=== PATIENT | male | born 1960 | race Two or more races ===

== ENCOUNTER 2021-04-30 11:19 | Inpatient (IN) | payer OTHER ==
[~2021-04-30] VITALS: Ht 175.3 cm; Wt 88.0 kg
[~2021-04-30 11:19] MED LIST: ALBUPOW26
[2021-04-30] MEDS ORDERED: cefTRIAXone 1GM/50ML D5W 50 ML IV ONE (15:15)
[2021-04-30] MEDS ORDERED: DexAMETHasone SOD PHOS 10MG/1ML VIAL INJ IV ONE (15:15)
[2021-04-30] MEDS ORDERED: AZITHROMYCIN 500MG/ 250ML 250 ML IV ONE (15:15)
[2021-04-30 15:37] LABS: Basophils # (auto) 0 10 ^3/uL (0-0.2); Basophils % (auto) 0.6 % (0.0-2.0); Eosinophils # (auto) 0 10 ^3/uL (0-0.8); Eosinophils % (auto) 0.1 % (0.0-7.0); Hematocrit 44.4 % (41.0-53.0); Hemoglobin 15.6 g/dL (13.5-17.5); Lymphocytes # (auto) 0.6 10 ^3/uL (0.4-5.4); Lymphocytes % (auto) 13.6 % (10.0-50.0); Mean Corpuscular Hemoglobin 31.8 pg (28.0-32.0); Mean Corpuscular Hgb Conc. 35.1 g/dL (32.0-36.0); Mean Corpuscular Volume 90.7 fL (80.0-100.0); Monocytes # (auto) 0.4 10 ^3/uL (0-1.3); Monocytes % (auto) 8.9 % (0.0-12.0); Neutrophils # (auto) 3.6 10 ^3/uL (1.6-8.6); Neutrophils % (auto) 76.8 % (37.0-80.0); Nucleated Red Blood Cells % 0.5 %; Red Blood Cells 4.89 10^6/uL (4.5-5.90); Red Cell Distribution Width 13.1 % (11.8-14.3); White Blood Cell 4.7 10^3/uL (4.4-10.8)
[2021-04-30 15:52] LABS: Albumin 3.1 g/dL (3.4-5.0); Calcium 8.1 mg/dL (8.5-10.1); Potassium 4.2 mmol/L (3.5-5.1)
[2021-04-30 15:57] LABS: BUN/Creatinine Ratio 13.3; Bilirubin, Total 0.5 mg/dL (0.2-1.0); Total Protein 7.2 g/dL (6.4-8.2)
[2021-04-30] MEDS ORDERED: MORPHINE SULFATE INJECTION 2 MG/ML SYRG IV PRN (18:45)
[2021-04-30] MEDS ORDERED: NITROGLYCERIN 0.4 MG SL TAB SL PRN (18:45)
[2021-04-30] MEDS ORDERED: ONDANSETRON HCL 4 MG/2 ML VIAL IV PRN (18:45)
[2021-04-30] MEDS ORDERED: REMDESIVIR PER PHARMACY 0 ML IV SCH (18:45)
[2021-04-30] MEDS ORDERED: IOHEXOL 350 MG/ML 100ML IJ ONE ×2 (18:54→19:00)
[2021-04-30] MEDS ORDERED: REMDESIVIR 200 MG in NS 210ml LOADING DOSE ADULT IV ONE (21:30)
[2021-04-30] MEDS: ENOXAPARIN SOD 40 MG/0.4 ML SYRINGE SC SCH (22:00)
[2021-04-30] MEDS: ASCORBIC ACID 500 MG TAB PO SCH (22:00)
[2021-04-30] MEDS: DOXYCYCLINE 100MG/250ML 250 ML IV SCH (22:00)
[2021-05-01] MEDS: ACETAMINOPHEN 325 MG TAB PO PRN (03:50)
[2021-05-01 08:36] LABS: Potassium 4.3 mmol/L (3.5-5.1)
[2021-05-01 08:44] LABS: Albumin 2.8 g/dL (3.4-5.0); BUN/Creatinine Ratio 16.7; Bilirubin, Total 0.5 mg/dL (0.2-1.0); Calcium 8.4 mg/dL (8.5-10.1); Total Protein 6.9 g/dL (6.4-8.2)
[2021-05-01 09:00] VITALS: BP 106/81
[2021-05-01] MEDS: ENOXAPARIN SOD 40 MG/0.4 ML SYRINGE SC SCH ×2 (10:00→22:30)
[2021-05-01] MEDS: ZINC SULFATE 220mg CAP or TAB PO SCH (10:00)
[2021-05-01] MEDS: DexAMETHasone SOD PHOS 10MG/1ML VIAL INJ IV SCH (10:00)
[2021-05-01] MEDS: DOXYCYCLINE 100MG/250ML 250 ML IV SCH ×2 (10:00→22:29)
[2021-05-01] MEDS: ASCORBIC ACID 500 MG TAB PO SCH ×2 (10:00→22:30)
[2021-05-01] MEDS ORDERED: ENOXAPARIN SOD 40 MG/0.4 ML SYRINGE SC SCH (10:00)
[2021-05-01] MEDS: REMDESIVIR 100mg 100 MG in SODIUM CHL 0.9% 230 ML IV SCH (15:00)
[2021-05-01] MEDS ORDERED: CHOLECALCIFEROL (VITD3) 2,000 UNIT CAP/TAB PO ONE (16:15)
[2021-05-01] MEDS: Ensure HIGH Protein Chocolate 8oz Bottle PO SCH (18:00)
[2021-05-01 20:00] VITALS: BP 122/76
[2021-05-01 22:00] VITALS: BP 122/76
[2021-05-02 04:41] LABS: Urine Bacteria FEW /hpf (None Seen); Urine Blood Negative /uL (Negative); Urine Specific Gravity 1.019 (1.001-1.035); Urine WBC 1 /hpf (0 - 3)
[2021-05-02 05:00] VITALS: BP 125/74
[2021-05-02] MEDS: ALBUTEROL SULF HFA 90MCG INH 200DOSE IN PRN ×2 (05:41→19:44)
[2021-05-02 07:33] LABS: Basophils # (auto) 0 10 ^3/uL (0-0.2); Basophils % (auto) 0.2 % (0.0-2.0); Eosinophils # (auto) 0 10 ^3/uL (0-0.8); Hematocrit 44.3 % (41.0-53.0); Hemoglobin 15.5 g/dL (13.5-17.5); Lymphocytes # (auto) 0.9 10 ^3/uL (0.4-5.4); Lymphocytes % (auto) 10.1 % (10.0-50.0); Mean Corpuscular Hemoglobin 31.9 pg (28.0-32.0); Mean Corpuscular Volume 91.3 fL (80.0-100.0); Monocytes # (auto) 0.8 10 ^3/uL (0-1.3); Monocytes % (auto) 8.9 % (0.0-12.0); Neutrophils % (auto) 80.8 % (37.0-80.0); Nucleated Red Blood Cells % 0.1 %; Red Blood Cells 4.85 10^6/uL (4.5-5.90); Red Cell Distribution Width 13.1 % (11.8-14.3); White Blood Cell 8.7 10^3/uL (4.4-10.8)
[2021-05-02 07:52] LABS: Albumin 2.7 g/dL (3.4-5.0); Calcium 7.7 mg/dL (8.5-10.1); Potassium 4.3 mmol/L (3.5-5.1)
[2021-05-02 07:58] LABS: BUN/Creatinine Ratio 21.9; Bilirubin, Total 0.5 mg/dL (0.2-1.0); Total Protein 6.1 g/dL (6.4-8.2)
[2021-05-02] MEDS: Ensure HIGH Protein Chocolate 8oz Bottle PO SCH ×3 (08:00→18:00)
[2021-05-02 09:00] VITALS: BP 120/77
[2021-05-02] MEDS: DexAMETHasone SOD PHOS 10MG/1ML VIAL INJ IV SCH (10:00)
[2021-05-02] MEDS: ENOXAPARIN SOD 40 MG/0.4 ML SYRINGE SC SCH ×2 (10:00→21:28)
[2021-05-02] MEDS: ASCORBIC ACID 500 MG TAB PO SCH ×2 (10:00→21:28)
[2021-05-02] MEDS: CHOLECALCIFEROL (VITD3) 2,000 UNIT CAP/TAB PO SCH (10:00)
[2021-05-02] MEDS: ZINC SULFATE 220mg CAP or TAB PO SCH (10:00)
[2021-05-02 13:00] VITALS: BP 109/70
[2021-05-02] MEDS: PIPERACILLIN-TAZOB 3.375GM 100 ML IV SCH ×2 (14:00→21:28)
[2021-05-02] MEDS: REMDESIVIR 100mg 100 MG in SODIUM CHL 0.9% 230 ML IV SCH (15:30)
[2021-05-02 17:00] VITALS: BP 120/82
[2021-05-02] MEDS: BUDESONIDE (INHALATION) 180 MCG IH IN SCH (19:44)
[2021-05-02 20:00] VITALS: BP 125/81
[2021-05-02 22:00] VITALS: BP 125/81
[2021-05-03] MEDS: CYCLOBENZAPRINE HCL 10 MG TAB PO PRN (03:56)
[2021-05-03 05:00] VITALS: BP 112/77
[2021-05-03] MEDS: PIPERACILLIN-TAZOB 3.375GM 100 ML IV SCH ×3 (06:00→21:58)
[2021-05-03 07:05] LABS: Calcium 7.9 mg/dL (8.5-10.1); Potassium 4.5 mmol/L (3.5-5.1)
[2021-05-03 07:08] LABS: Albumin 2.4 g/dL (3.4-5.0); BUN/Creatinine Ratio 21.4
[2021-05-03 07:10] LABS: Bilirubin, Total 0.6 mg/dL (0.2-1.0); Total Protein 5.5 g/dL (6.4-8.2)
[2021-05-03] MEDS: Ensure HIGH Protein Chocolate 8oz Bottle PO SCH ×3 (08:00→18:00)
[2021-05-03 09:00] VITALS: BP 105/77
[2021-05-03] MEDS: BUDESONIDE (INHALATION) 180 MCG IH IN SCH ×2 (09:30→22:18)
[2021-05-03] MEDS: ALBUTEROL SULF HFA 90MCG INH 200DOSE IN PRN ×2 (09:31→22:18)
[2021-05-03] MEDS: ENOXAPARIN SOD 40 MG/0.4 ML SYRINGE SC SCH ×2 (10:00→21:58)
[2021-05-03] MEDS: ZINC SULFATE 220mg CAP or TAB PO SCH (10:00)
[2021-05-03] MEDS: CHOLECALCIFEROL (VITD3) 2,000 UNIT CAP/TAB PO SCH (10:00)
[2021-05-03] MEDS: ASCORBIC ACID 500 MG TAB PO SCH ×2 (10:00→21:58)
[2021-05-03] MEDS: DexAMETHasone SOD PHOS 10MG/1ML VIAL INJ IV SCH (10:00)
[2021-05-03 13:00] VITALS: BP 112/72
[2021-05-03] MEDS: REMDESIVIR 100mg 100 MG in SODIUM CHL 0.9% 230 ML IV SCH (13:00)
[2021-05-03 16:59] VITALS: BP 115/73
[2021-05-03 20:00] VITALS: BP 115/69
[2021-05-04] MEDS: PIPERACILLIN-TAZOB 3.375GM 100 ML IV SCH ×3 (06:02→22:01)
[2021-05-04 06:19] LABS: Potassium 4.4 mmol/L (3.5-5.1)
[2021-05-04 06:27] LABS: Albumin 2.3 g/dL (3.4-5.0); BUN/Creatinine Ratio 23.9; Bilirubin, Total 0.8 mg/dL (0.2-1.0); Calcium 7.7 mg/dL (8.5-10.1); Total Protein 5.4 g/dL (6.4-8.2)
[2021-05-04] MEDS: ALBUTEROL SULF HFA 90MCG INH 200DOSE IN PRN ×2 (07:08→19:23)
[2021-05-04] MEDS: BUDESONIDE (INHALATION) 180 MCG IH IN SCH ×2 (07:08→19:23)
[2021-05-04] MEDS: CHOLECALCIFEROL (VITD3) 2,000 UNIT CAP/TAB PO SCH (08:10)
[2021-05-04] MEDS: ZINC SULFATE 220mg CAP or TAB PO SCH (08:10)
[2021-05-04] MEDS: ASCORBIC ACID 500 MG TAB PO SCH ×2 (08:10→22:01)
[2021-05-04] MEDS: Ensure HIGH Protein Chocolate 8oz Bottle PO SCH ×3 (08:10→17:55)
[2021-05-04] MEDS: DexAMETHasone SOD PHOS 10MG/1ML VIAL INJ IV SCH (08:10)
[2021-05-04] MEDS: ENOXAPARIN SOD 40 MG/0.4 ML SYRINGE SC SCH ×2 (08:11→22:02)
[2021-05-04 09:00] VITALS: BP 93/61
[2021-05-04] MEDS ORDERED: POTASSIUM CHL 20 Meq TABLET PO ONE (12:00)
[2021-05-04] MEDS ORDERED: FUROSEMIDE 20 MG/2 ML VIAL IV ONE (12:00)
[2021-05-04 12:40] VITALS: BP 110/70
[2021-05-04] MEDS ORDERED: CALCIUM CARB 500 MG CHEW TAB PO PRN (15:45)
[2021-05-04] MEDS: CYCLOBENZAPRINE HCL 10 MG TAB PO PRN ×2 (15:56→22:11)
[2021-05-04] MEDS: REMDESIVIR 100mg 100 MG in SODIUM CHL 0.9% 230 ML IV SCH (15:56)
[2021-05-04 22:00] VITALS: BP 108/70
[2021-05-05 05:00] VITALS: BP 100/66
[2021-05-05] MEDS: PIPERACILLIN-TAZOB 3.375GM 100 ML IV SCH ×3 (05:18→21:50)
[2021-05-05] MEDS: ALBUTEROL SULF HFA 90MCG INH 200DOSE IN PRN ×2 (06:04→22:01)
[2021-05-05] MEDS: BUDESONIDE (INHALATION) 180 MCG IH IN SCH ×2 (06:04→22:01)
[2021-05-05 08:00] LABS: Potassium 4.4 mmol/L (3.5-5.1)
[2021-05-05] MEDS: Ensure HIGH Protein Chocolate 8oz Bottle PO SCH ×3 (08:00→18:07)
[2021-05-05 08:15] LABS: BUN/Creatinine Ratio 28.8; Calcium 7.8 mg/dL (8.5-10.1)
[2021-05-05 09:00] VITALS: BP 110/68
[2021-05-05] MEDS: DexAMETHasone SOD PHOS 10MG/1ML VIAL INJ IV SCH (10:22)
[2021-05-05] MEDS: FUROSEMIDE 20 MG/2 ML VIAL IV SCH (10:23)
[2021-05-05] MEDS: ZINC SULFATE 220mg CAP or TAB PO SCH (10:23)
[2021-05-05] MEDS: POTASSIUM CHL 20 Meq TABLET PO SCH (10:24)
[2021-05-05] MEDS: ASCORBIC ACID 500 MG TAB PO SCH ×2 (10:25→21:49)
[2021-05-05] MEDS: CHOLECALCIFEROL (VITD3) 2,000 UNIT CAP/TAB PO SCH (10:27)
[2021-05-05] MEDS: ENOXAPARIN SOD 40 MG/0.4 ML SYRINGE SC SCH ×2 (10:28→21:50)
[2021-05-05 13:00] VITALS: BP 121/76
[2021-05-05] MEDS: traMADol HCL 50 MG TAB PO PRN ×2 (13:22→21:51)
[2021-05-05 16:59] VITALS: BP 105/67
[2021-05-05 22:00] VITALS: BP 110/72
[2021-05-06] MEDS: PIPERACILLIN-TAZOB 3.375GM 100 ML IV SCH ×3 (04:57→23:00)
[2021-05-06 05:00] VITALS: BP 102/68
[2021-05-06 06:05] LABS: Basophils # (auto) 0 10 ^3/uL (0-0.2); Basophils % (auto) 0.1 % (0.0-2.0); Eosinophils # (auto) 0 10 ^3/uL (0-0.8); Eosinophils % (auto) 0.1 % (0.0-7.0); Hematocrit 43.4 % (41.0-53.0); Hemoglobin 14.9 g/dL (13.5-17.5); Lymphocytes # (auto) 0.5 10 ^3/uL (0.4-5.4); Lymphocytes % (auto) 3.6 % (10.0-50.0); Mean Corpuscular Hemoglobin 31.3 pg (28.0-32.0); Mean Corpuscular Hgb Conc. 34.3 g/dL (32.0-36.0); Mean Corpuscular Volume 91.2 fL (80.0-100.0); Monocytes # (auto) 0.4 10 ^3/uL (0-1.3); Monocytes % (auto) 2.7 % (0.0-12.0); Neutrophils # (auto) 13.7 10 ^3/uL (1.6-8.6); Neutrophils % (auto) 93.5 % (37.0-80.0); Red Blood Cells 4.75 10^6/uL (4.5-5.90); Red Cell Distribution Width 13.2 % (11.8-14.3); White Blood Cell 14.6 10^3/uL (4.4-10.8)
[2021-05-06 06:21] LABS: BUN/Creatinine Ratio 22.8; Calcium 8.3 mg/dL (8.5-10.1); Potassium 4.6 mmol/L (3.5-5.1)
[2021-05-06] MEDS: BUDESONIDE (INHALATION) 180 MCG IH IN SCH ×2 (07:42→22:00)
[2021-05-06] MEDS: ALBUTEROL SULF HFA 90MCG INH 200DOSE IN PRN (07:42)
[2021-05-06] MEDS: ENOXAPARIN SOD 40 MG/0.4 ML SYRINGE SC SCH ×2 (09:08→23:00)
[2021-05-06] MEDS: POTASSIUM CHL 20 Meq TABLET PO SCH (09:08)
[2021-05-06] MEDS: DexAMETHasone SOD PHOS 10MG/1ML VIAL INJ IV SCH (09:08)
[2021-05-06] MEDS: Ensure HIGH Protein Chocolate 8oz Bottle PO SCH ×3 (09:09→18:00)
[2021-05-06] MEDS: ASCORBIC ACID 500 MG TAB PO SCH ×2 (09:09→23:00)
[2021-05-06] MEDS: ZINC SULFATE 220mg CAP or TAB PO SCH (09:09)
[2021-05-06] MEDS: CHOLECALCIFEROL (VITD3) 2,000 UNIT CAP/TAB PO SCH (09:09)
[2021-05-06] MEDS: traMADol HCL 50 MG TAB PO PRN (09:45)
[2021-05-06] MEDS: FUROSEMIDE 20 MG/2 ML VIAL IV SCH (09:48)
[2021-05-06 10:14] VITALS: BP 112/62
[2021-05-06] MEDS ORDERED: DEXTROSE (50%) 50ML SYRG IV PRN (12:45)
[2021-05-06 15:16] VITALS: BP 116/72
[2021-05-06] MEDS: CYCLOBENZAPRINE HCL 10 MG TAB PO PRN (15:16)
[2021-05-06] MEDS: PROMETHAZINE W/CODEINE 5 ML ORAL SYRUP PO PRN (15:17)
[2021-05-06 17:01] VITALS: BP 110/73
[2021-05-06 17:02] VITALS: BP 120/80
[2021-05-06] MEDS: ACCU-CHEK COMFORT CURVE STRIP VI SCH (18:07)
[2021-05-06] MEDS: InsuLIN REG 1unit/0.01ml Soln (100units/ml) SC SCH (18:11)
[2021-05-06 22:00] VITALS: BP 112/64
[2021-05-07 05:00] VITALS: BP 100/66
[2021-05-07] MEDS: InsuLIN REG 1unit/0.01ml Soln (100units/ml) SC SCH ×4 (05:17→17:51)
[2021-05-07] MEDS: ACCU-CHEK COMFORT CURVE STRIP VI SCH ×4 (05:18→17:50)
[2021-05-07] MEDS: PIPERACILLIN-TAZOB 3.375GM 100 ML IV SCH ×3 (05:47→20:56)
[2021-05-07] MEDS: Ensure HIGH Protein Chocolate 8oz Bottle PO SCH ×3 (08:00→19:24)
[2021-05-07] MEDS: DexAMETHasone SOD PHOS 10MG/1ML VIAL INJ IV SCH (08:10)
[2021-05-07] MEDS: POTASSIUM CHL 20 Meq TABLET PO SCH (08:11)
[2021-05-07] MEDS: ZINC SULFATE 220mg CAP or TAB PO SCH (08:11)
[2021-05-07] MEDS: ENOXAPARIN SOD 40 MG/0.4 ML SYRINGE SC SCH ×2 (08:12→20:56)
[2021-05-07] MEDS: FUROSEMIDE 20 MG/2 ML VIAL IV SCH (08:12)
[2021-05-07] MEDS: ASCORBIC ACID 500 MG TAB PO SCH ×2 (08:12→20:56)
[2021-05-07] MEDS: CHOLECALCIFEROL (VITD3) 2,000 UNIT CAP/TAB PO SCH (08:12)
[2021-05-07] MEDS: PROMETHAZINE W/CODEINE 5 ML ORAL SYRUP PO PRN ×2 (08:31→21:15)
[2021-05-07] MEDS: traMADol HCL 50 MG TAB PO PRN ×2 (08:31→20:57)
[2021-05-07 09:00] VITALS: BP_SYST 102; BP_SYST 126; BP_DIAS 54; BP_DIAS 65
[2021-05-07] MEDS ORDERED: CLINIMIX PER PHARMACY 0 ML IV SCH (11:15)
[2021-05-07] MEDS: BUDESONIDE (INHALATION) 180 MCG IH IN SCH ×2 (11:32→22:00)
[2021-05-07] MEDS: ALBUTEROL SULF HFA 90MCG INH 200DOSE IN PRN (11:32)
[2021-05-07 14:00] VITALS: BP 111/70
[2021-05-07 14:44] LABS: Albumin 2.1 g/dL (3.4-5.0); Magnesium 2.4 mg/dL (1.6-2.6)
[2021-05-07 14:54] LABS: BUN/Creatinine Ratio 20.2; Bilirubin, Total 0.8 mg/dL (0.2-1.0); Calcium 8.7 mg/dL (8.5-10.1); Phosphorus 3.4 mg/dL (2.5-4.90); Pre Albumin 8.7 mg/dL (20.0-40.0); Total Protein 6.6 g/dL (6.4-8.2)
[2021-05-07 17:03] VITALS: BP 120/64
[2021-05-07] MEDS: CYCLOBENZAPRINE HCL 10 MG TAB PO PRN (19:24)
[2021-05-07 22:00] VITALS: BP 122/72
[2021-05-08] MEDS ORDERED: DEXTROSE (50%) 50ML SYRG IV SCH
[2021-05-08] MEDS: ACCU-CHEK COMFORT CURVE STRIP VI SCH ×4 (00:24→18:00)
[2021-05-08] MEDS: PROMETHAZINE W/CODEINE 5 ML ORAL SYRUP PO PRN ×2 (03:00→16:37)
[2021-05-08 05:00] VITALS: BP 102/69
[2021-05-08] MEDS: InsuLIN REG 1unit/0.01ml Soln (100units/ml) SC SCH ×4 (06:00→18:51)
[2021-05-08] MEDS: ALBUTEROL SULF HFA 90MCG INH 200DOSE IN PRN ×2 (06:26→23:55)
[2021-05-08] MEDS: BUDESONIDE (INHALATION) 180 MCG IH IN SCH ×2 (06:26→22:00)
[2021-05-08] MEDS: PIPERACILLIN-TAZOB 3.375GM 100 ML IV SCH ×3 (06:42→22:08)
[2021-05-08 07:27] LABS: Hemoglobin 15.1 g/dL (13.5-17.5); Mean Corpuscular Hemoglobin 31.4 pg (28.0-32.0); Mean Corpuscular Hgb Conc. 34.3 g/dL (32.0-36.0); Mean Corpuscular Volume 91.6 fL (80.0-100.0); Red Cell Distribution Width 12.8 % (11.8-14.3); White Blood Cell 18.5 10^3/uL (4.4-10.8)
[2021-05-08 07:31] LABS: Potassium 4.5 mmol/L (3.5-5.1)
[2021-05-08 07:38] LABS: Albumin 1.9 g/dL (3.4-5.0); BUN/Creatinine Ratio 24.3; Calcium 7.8 mg/dL (8.5-10.1); Magnesium 3.1 mg/dL (1.6-2.6); Phosphorus 3.4 mg/dL (2.5-4.90); Total Protein 6.3 g/dL (6.4-8.2)
[2021-05-08] MEDS: Ensure HIGH Protein Chocolate 8oz Bottle PO SCH ×3 (08:00→17:10)
[2021-05-08 08:26] LABS: Basophils % (manual) 0 (0.0-2.0); Blast Cells 0; Myelocytes % 0; Promyelocytes % 0; Reactive Lymphocytes 0
[2021-05-08 08:54] LABS: Band Neutrophils % (manual) 12; Eosinophils % (manual) 2 (0-7); Lymphocytes % (manual) 9 (10.0-50.0); Metamyelocytes % 1; Monocytes % (manual) 8 (0-12)
[2021-05-08 09:00] VITALS: BP 110/66
[2021-05-08] MEDS: traMADol HCL 50 MG TAB PO PRN ×2 (10:07→16:37)
[2021-05-08] MEDS: ASCORBIC ACID 500 MG TAB PO SCH ×2 (10:07→22:08)
[2021-05-08] MEDS: ZINC SULFATE 220mg CAP or TAB PO SCH (10:07)
[2021-05-08] MEDS: CHOLECALCIFEROL (VITD3) 2,000 UNIT CAP/TAB PO SCH (10:07)
[2021-05-08] MEDS: POTASSIUM CHL 20 Meq TABLET PO SCH (10:07)
[2021-05-08] MEDS: ENOXAPARIN SOD 40 MG/0.4 ML SYRINGE SC SCH ×2 (10:09→22:08)
[2021-05-08] MEDS: DexAMETHasone SOD PHOS 10MG/1ML VIAL INJ IV SCH (10:09)
[2021-05-08] MEDS: FUROSEMIDE 20 MG/2 ML VIAL IV SCH (10:09)
[2021-05-08] MEDS ORDERED: LORazepam 2MG/ML-1ML VIAL IV PRN (11:00)
[2021-05-08] MEDS ORDERED: PPN PER PHARMACY 0 ML IV SCH (11:00)
[2021-05-08] MEDS ORDERED: AMINO ACID INFUSION IN D10W 1,000 ML IV NR ×2 (12:30→20:00)
[2021-05-08 13:36] VITALS: BP 120/73
[2021-05-08 17:35] VITALS: BP 97/56
[2021-05-08 18:22] VITALS: BP 97/56
[2021-05-08] MEDS: CYCLOBENZAPRINE HCL 10 MG TAB PO PRN (18:49)
[2021-05-08 22:00] VITALS: BP 139/90
[2021-05-09] VITALS (27 sets, daily range): BP systolic 66–193; BP diastolic 41–113
[2021-05-09] MEDS: BUDESONIDE (INHALATION) 180 MCG IH IN SCH ×2 (05:49→18:30)
[2021-05-09] MEDS: ALBUTEROL SULF HFA 90MCG INH 200DOSE IN PRN (05:49)
[2021-05-09] MEDS: PIPERACILLIN-TAZOB 3.375GM 100 ML IV SCH ×3 (06:00→22:00)
[2021-05-09] MEDS: InsuLIN REG 1unit/0.01ml Soln (100units/ml) SC SCH ×4 (06:00→18:00)
[2021-05-09] MEDS: ACCU-CHEK COMFORT CURVE STRIP VI SCH ×4 (06:00→18:00)
[2021-05-09 07:12] LABS: Basophils # (auto) 0.1 10 ^3/uL (0-0.2); Basophils % (auto) 0.3 % (0.0-2.0); Eosinophils # (auto) 0 10 ^3/uL (0-0.8); Eosinophils % (auto) 0.1 % (0.0-7.0); Hemoglobin 15.5 g/dL (13.5-17.5); Lymphocytes # (auto) 0.2 10 ^3/uL (0.4-5.4); Lymphocytes % (auto) 1.1 % (10.0-50.0); Mean Corpuscular Hemoglobin 31.1 pg (28.0-32.0); Mean Corpuscular Hgb Conc. 34.4 g/dL (32.0-36.0); Mean Corpuscular Volume 90.5 fL (80.0-100.0); Monocytes # (auto) 0.2 10 ^3/uL (0-1.3); Monocytes % (auto) 0.9 % (0.0-12.0); Neutrophils # (auto) 18.4 10 ^3/uL (1.6-8.6); Neutrophils % (auto) 97.6 % (37.0-80.0); Red Blood Cells 4.97 10^6/uL (4.5-5.90); Red Cell Distribution Width 13.1 % (11.8-14.3); White Blood Cell 18.8 10^3/uL (4.4-10.8)
[2021-05-09 07:18] LABS: Albumin 1.9 g/dL (3.4-5.0); Anion Gap 5 (5-15); Blood Urea Nitrogen 21 mg/dL (7-18); Calcium 8.3 mg/dL (8.5-10.1); Carbon Dioxide 26 mmol/L (21-32); Chloride 99 mmol/L (98-107); Glucose 153 mg/dL (74-106); Magnesium 2.6 mg/dL (1.6-2.6); Potassium 4.9 mmol/L (3.5-5.1); Sodium 130 mmol/L (136-145)
[2021-05-09 07:22] LABS: Lactic Acid w/Reflex 3.1 mmol/L (0.4-2.0)
[2021-05-09 07:27] LABS: Alanine Aminotransferase 31 U/L (16-61); Alkaline Phosphatase 144 U/L (45-117); Aspartate Aminotransferase 31 U/L (15-37); BUN/Creatinine Ratio 26.6; Bilirubin, Total 1.1 mg/dL (0.2-1.0); Cholesterol 80 mg/dL (< 200); GFR African American 130 mL/min; GFR Non-African American 107 mL/min; HDL Cholesterol 17 mg/dL (40-59); LDL Cholesterol 51 mg/dL (< 100); Total Protein 6.7 g/dL (6.4-8.2); Triglycerides 149 mg/dL (< 150)
[2021-05-09 07:29] LABS: INR 1.22 (0.9-1.15)
[2021-05-09 07:38] LABS: CRP High Sensitivity > 19.0 mg/dL (< 0.3)
[2021-05-09 07:48] LABS: Thyroid Stimulating Hormone 0.54 uIU/mL (0.358-3.74)
[2021-05-09] MEDS: Ensure HIGH Protein Chocolate 8oz Bottle PO SCH ×3 (07:55→18:00)
[2021-05-09] MEDS: ZINC SULFATE 220mg CAP or TAB PO SCH (10:00)
[2021-05-09] MEDS: CHOLECALCIFEROL (VITD3) 2,000 UNIT CAP/TAB PO SCH (10:00)
[2021-05-09] MEDS: ASCORBIC ACID 500 MG TAB PO SCH ×2 (10:00→22:00)
[2021-05-09] MEDS: POTASSIUM CHL 20 Meq TABLET PO SCH (10:00)
[2021-05-09] MEDS: DexAMETHasone SOD PHOS 10MG/1ML VIAL INJ IV SCH (10:14)
[2021-05-09] MEDS: FUROSEMIDE 20 MG/2 ML VIAL IV SCH ×2 (10:17→18:00)
[2021-05-09] MEDS: ENOXAPARIN SOD 40 MG/0.4 ML SYRINGE SC SCH ×2 (10:18→22:00)
[2021-05-09] MEDS ORDERED: ETOMIDATE (2MG/ML) 20ML VIAL IV ONE ×2 (16:04→17:45)
[2021-05-09] MEDS ORDERED: SUCCINYLCHOLINE CHLORIDE 20 MG/ML 10ML VIAL IV ONE (16:06)
[2021-05-09] MEDS ORDERED: ROCURONIUM 10MG/ML 10ML VIAL IV ONE ×2 (16:09→17:45)
[2021-05-09] MEDS ORDERED: MIDAZOLAM DRIP 50 mg/50mL 50 ML IV ONE (16:26)
[2021-05-09] MEDS ORDERED: PROPOFOL 200 ML IV ONE (17:37)
[2021-05-09] MEDS: MIDAZOLAM DRIP 50 mg/50mL 50 ML IV SCH ×2 (17:45→20:00)
[2021-05-09] MEDS: PROPOFOL 100 ML IV SCH ×2 (17:45→20:00)
[2021-05-09] MEDS: fentaNYL Drip 2500mCg/250mlNS 250 ML IV SCH (17:45)
[2021-05-09] MEDS ORDERED: PHENYLEPHRINE IV 250 ML IV ONE (19:58)
[2021-05-09] MEDS ORDERED: AMINO ACID INFUSION IN D10W 1,000 ML IV NR (20:00)
[2021-05-09] MEDS: PHENYLEPHRINE IV 250 ML IV SCH ×2 (20:50→23:00)
[2021-05-10] VITALS (94 sets, daily range): BP systolic 40–137; BP diastolic 23–77
[2021-05-10] MEDS: PHENYLEPHRINE IV 250 ML IV SCH ×2 (01:30→04:00)
[2021-05-10] MEDS: MIDAZOLAM DRIP 50 mg/50mL 50 ML IV SCH ×2 (04:00)
[2021-05-10] MEDS: PROPOFOL 100 ML IV SCH ×2 (04:00)
[2021-05-10 05:50] LABS: Hematocrit 46.1 % (41.0-53.0); Hemoglobin 15.2 g/dL (13.5-17.5); Mean Corpuscular Hgb Conc. 32.9 g/dL (32.0-36.0); Mean Corpuscular Volume 94.4 fL (80.0-100.0); Red Blood Cells 4.89 10^6/uL (4.5-5.90); White Blood Cell 23.9 10^3/uL (4.4-10.8)
[2021-05-10] MEDS: FUROSEMIDE 20 MG/2 ML VIAL IV SCH ×3 (06:00→21:06)
[2021-05-10] MEDS: PIPERACILLIN-TAZOB 3.375GM 100 ML IV SCH (06:00)
[2021-05-10] MEDS: ACCU-CHEK COMFORT CURVE STRIP VI SCH ×5 (06:00→16:00)
[2021-05-10] MEDS: InsuLIN REG 1unit/0.01ml Soln (100units/ml) SC SCH ×5 (06:00→16:00)
[2021-05-10 06:16] LABS: INR 1.11 (0.9-1.15)
[2021-05-10 06:21] LABS: Albumin 1.7 g/dL (3.4-5.0); Basophils % (manual) 0 (0.0-2.0); Blast Cells 0; Calcium 7.6 mg/dL (8.5-10.1); Eosinophils % (manual) 0 (0-7); Magnesium 3.4 mg/dL (1.6-2.6); Metamyelocytes % 0; Myelocytes % 0; Potassium 5.5 mmol/L (3.5-5.1); Promyelocytes % 0; Reactive Lymphocytes 0
[2021-05-10 06:23] LABS: BUN/Creatinine Ratio 24.4; Lactic Acid w/Reflex 3.5 mmol/L (0.4-2.0)
[2021-05-10 06:26] LABS: Bilirubin, Total 0.5 mg/dL (0.2-1.0); Phosphorus 5.3 mg/dL (2.5-4.90); Total Protein 5.9 g/dL (6.4-8.2)
[2021-05-10] MEDS: PHENYLEPHRINE INJ 80 MG in SODIUM CHL 0.9% 242 ML IV SCH (07:00)
[2021-05-10] MEDS ORDERED: SODIUM ZIRCONIUM CYCL 10 GM PAK PO ONE (08:30)
[2021-05-10] MEDS ORDERED: PHENYLEPHRINE IV 250 ML IV ONE (09:25)
[2021-05-10] MEDS ORDERED: VASOPRESSIN 50 UNITS in D5W 5% 247.5 ML IV SCH (09:30)
[2021-05-10] MEDS: ASCORBIC ACID 500 MG TAB PO SCH ×2 (10:00→21:06)
[2021-05-10] MEDS: CHOLECALCIFEROL (VITD3) 2,000 UNIT CAP/TAB PO SCH (10:00)
[2021-05-10] MEDS: ZINC SULFATE 220mg CAP or TAB PO SCH (10:00)
[2021-05-10] MEDS: DexAMETHasone SOD PHOS 10MG/1ML VIAL INJ IV SCH (10:00)
[2021-05-10] MEDS ORDERED: VANCOMYCIN PER PHARMACY 0 MG IV SCH (11:45)
[2021-05-10] MEDS ORDERED: SODIUM CHLORIDE 0.9% 1,000 ML IV ONE (11:45)
[2021-05-10] MEDS ORDERED: MEROPENEM 1GM IVPB 100 ML IV ONE (11:45)
[2021-05-10 11:52] LABS: Band Neutrophils % (manual) 1; Lymphocytes % (manual) 1 (10.0-50.0); Monocytes % (manual) 2 (0-12)
[2021-05-10] MEDS ORDERED: DEXTROSE (50%) 50ML SYRG IV PRN (12:00)
[2021-05-10] MEDS ORDERED: VANCOMYCIN 1GM/250ML 250 ML IV ONE (12:30)
[2021-05-10] MEDS: NOREPINEPHRINE 8 MG/250ML KIT 250 ML IV SCH (14:40)
[2021-05-10] MEDS ORDERED: HEPARIN DRIP/D5W 100UNITS/ML 250 ML IV SCH ×2 (15:30→18:30)
[2021-05-10 16:20] LABS: Basophils # (auto) 0 10 ^3/uL (0-0.2); Basophils % (auto) 0.1 % (0.0-2.0); Eosinophils # (auto) 0 10 ^3/uL (0-0.8); Eosinophils % (auto) 0.1 % (0.0-7.0); Hematocrit 42.7 % (41.0-53.0); Hemoglobin 14.4 g/dL (13.5-17.5); Lymphocytes # (auto) 0.4 10 ^3/uL (0.4-5.4); Lymphocytes % (auto) 1.9 % (10.0-50.0); Mean Corpuscular Hemoglobin 32.1 pg (28.0-32.0); Mean Corpuscular Hgb Conc. 33.6 g/dL (32.0-36.0); Mean Corpuscular Volume 95.3 fL (80.0-100.0); Monocytes # (auto) 0.2 10 ^3/uL (0-1.3); Monocytes % (auto) 0.7 % (0.0-12.0); Neutrophils # (auto) 23.3 10 ^3/uL (1.6-8.6); Neutrophils % (auto) 97.2 % (37.0-80.0); Nucleated Red Blood Cells % 0.1 %; Red Blood Cells 4.48 10^6/uL (4.5-5.90); Red Cell Distribution Width 13.2 % (11.8-14.3); White Blood Cell 23.9 10^3/uL (4.4-10.8)
[2021-05-10 17:30] LABS: INR 1.11 (0.9-1.15)
[2021-05-10] MEDS: fentaNYL Drip 2500mCg/250mlNS 250 ML IV SCH (17:45)
[2021-05-10] MEDS: CLINIMIX PER PHARMACY IV NR (21:06)
[2021-05-10] MEDS: MEROPENEM 1GM IVPB 100 ML IV SCH (21:07)
[2021-05-10] MEDS: ACETAMINOPHEN 325 MG TAB PO PRN (21:09)
[2021-05-10 22:20] LABS: INR 1.07 (0.9-1.15); Partial Thromboplastin Time 49.3 sec (23.6-33.0)
[2021-05-11] VITALS (96 sets, daily range): BP systolic 46–152; BP diastolic 30–100
[2021-05-11] MEDS: ACCU-CHEK COMFORT CURVE STRIP VI SCH ×6 (04:00→20:00)
[2021-05-11 06:00] LABS: Basophils # (auto) 0.1 10 ^3/uL (0-0.2); Basophils % (auto) 0.6 % (0.0-2.0); Eosinophils # (auto) 0 10 ^3/uL (0-0.8); Eosinophils % (auto) 0.2 % (0.0-7.0); Hematocrit 41.9 % (41.0-53.0); Hemoglobin 14.1 g/dL (13.5-17.5); Lymphocytes # (auto) 0.3 10 ^3/uL (0.4-5.4); Lymphocytes % (auto) 1.5 % (10.0-50.0); Mean Corpuscular Hemoglobin 32.2 pg (28.0-32.0); Mean Corpuscular Hgb Conc. 33.6 g/dL (32.0-36.0); Mean Corpuscular Volume 95.8 fL (80.0-100.0); Monocytes # (auto) 0.3 10 ^3/uL (0-1.3); Monocytes % (auto) 1.6 % (0.0-12.0); Neutrophils % (auto) 96.1 % (37.0-80.0); Red Blood Cells 4.37 10^6/uL (4.5-5.90); Red Cell Distribution Width 13.4 % (11.8-14.3); White Blood Cell 19.8 10^3/uL (4.4-10.8)
[2021-05-11] MEDS: InsuLIN REG 1unit/0.01ml Soln (100units/ml) SC SCH ×6 (06:00→20:00)
[2021-05-11 06:10] LABS: INR 1.05 (0.9-1.15)
[2021-05-11] MEDS: PHENYLEPHRINE INJ 80 MG in SODIUM CHL 0.9% 242 ML IV SCH (07:00)
[2021-05-11] MEDS: NOREPINEPHRINE 8 MG/250ML KIT 250 ML IV SCH (09:30)
[2021-05-11] MEDS ORDERED: NOREPINEPHRINE 8 MG/250ML KIT 250 ML IV ONE ×2 (09:46→14:58)
[2021-05-11] MEDS: DexAMETHasone SOD PHOS 10MG/1ML VIAL INJ IV SCH (10:00)
[2021-05-11] MEDS: CHOLECALCIFEROL (VITD3) 2,000 UNIT CAP/TAB PO SCH (10:00)
[2021-05-11] MEDS: MEROPENEM 1GM IVPB 100 ML IV SCH ×2 (10:00→22:28)
[2021-05-11] MEDS ORDERED: SODIUM CHLORIDE 0.9% 500 ML IV ONE (10:30)
[2021-05-11] MEDS: SODIUM CHLORIDE 0.9% 1,000 ML IV SCH ×2 (10:30→23:50)
[2021-05-11] MEDS ORDERED: HEPARIN DRIP/D5W 100UNITS/ML 250 ML IV SCH (11:30)
[2021-05-11 11:40] LABS: Albumin 1.6 g/dL (3.4-5.0); BUN/Creatinine Ratio 14.5; Bilirubin, Total 0.6 mg/dL (0.2-1.0); Calcium 6.5 mg/dL (8.5-10.1); Phosphorus 7.4 mg/dL (2.5-4.90); Total Protein 5.6 g/dL (6.4-8.2)
[2021-05-11 11:42] LABS: Magnesium 4.4 mg/dL (1.6-2.6); Potassium 6.4 mmol/L (3.5-5.1)
[2021-05-11] MEDS ORDERED: CALCIUM CHL 100MG/ML 1,000 MG in D5W 5% 100 ML IV ONE (13:00)
[2021-05-11] MEDS: SODIUM ZIRCONIUM CYCL 10 GM PAK PO SCH (14:00)
[2021-05-11 14:14] LABS: INR 1.1 (0.9-1.15); Partial Thromboplastin Time 67.7 sec (23.6-33.0)
[2021-05-11] MEDS: HEPARIN DRIP/D5W 100UNITS/ML 250 ML IV SCH (15:35)
[2021-05-11] MEDS: MIDAZOLAM DRIP 50 mg/50mL 50 ML IV SCH (17:45)
[2021-05-11] MEDS: fentaNYL Drip 2500mCg/250mlNS 250 ML IV SCH (17:45)
[2021-05-11] MEDS: PROPOFOL 100 ML IV SCH (17:45)
[2021-05-11] MEDS ORDERED: Glucerna 1.2 Cal 1Liter BOTTLE GT SCH (18:15)
[2021-05-11] MEDS: BUDESONIDE (INHALATION) 180 MCG IH IN SCH (18:30)
[2021-05-11] MEDS ORDERED: SODIUM BICARBONATE 50ML VIAL 150 ML in D5W 5% 1,000 ML IV SCH (19:45)
[2021-05-11] MEDS ORDERED: CALCIUM GLUC 1,000mg/50ml-NS 50 ML IV ONE (19:45)
[2021-05-11] MEDS ORDERED: FUROSEMIDE 100 MG/10ML VIAL IV ONE (19:45)
[2021-05-11] MEDS ORDERED: ALBUTEROL SULF 2.5 MG/0.5ML(0.5%) NEB SOLN NEB ONE (19:45)
[2021-05-11] MEDS: CLINIMIX PER PHARMACY IV NR (19:49)
[2021-05-11] MEDS ORDERED: AMINO ACID INFUSION IN D10W 1,000 ML IV NR (20:00)
[2021-05-11 22:20] LABS: INR 1.04 (0.9-1.15)
[2021-05-11 22:21] LABS: Partial Thromboplastin Time 28.8 sec (23.6-33.0)
[2021-05-11] MEDS ORDERED: HEPARIN SODIUM (PORCINE) 5000 UNITS/ML 1ML VIAL IV ONE (23:15)
[2021-05-12] VITALS (102 sets, daily range): BP systolic 79–156; BP diastolic 44–102
[2021-05-12] MEDS: SODIUM ZIRCONIUM CYCL 10 GM PAK PO SCH ×4 (00:56→22:35)
[2021-05-12] MEDS: NOREPINEPHRINE 8 MG/250ML KIT 250 ML IV SCH ×2 (00:58→21:13)
[2021-05-12] MEDS: HEPARIN DRIP/D5W 100UNITS/ML 250 ML IV SCH ×2 (01:01→15:45)
[2021-05-12] MEDS: ACCU-CHEK COMFORT CURVE STRIP VI SCH ×6 (01:28→22:19)
[2021-05-12] MEDS: InsuLIN REG 1unit/0.01ml Soln (100units/ml) SC SCH ×6 (01:30→22:20)
[2021-05-12] MEDS: PHENYLEPHRINE INJ 80 MG in SODIUM CHL 0.9% 242 ML IV SCH ×2 (07:00→21:13)
[2021-05-12 08:20] LABS: Basophils # (auto) 0.1 10 ^3/uL (0-0.2); Basophils % (auto) 0.3 % (0.0-2.0); Eosinophils # (auto) 0 10 ^3/uL (0-0.8); Eosinophils % (auto) 0.1 % (0.0-7.0); Hematocrit 37.2 % (41.0-53.0); Hemoglobin 12.3 g/dL (13.5-17.5); Lymphocytes # (auto) 0.3 10 ^3/uL (0.4-5.4); Lymphocytes % (auto) 1.6 % (10.0-50.0); Mean Corpuscular Hemoglobin 31.9 pg (28.0-32.0); Mean Corpuscular Hgb Conc. 33.1 g/dL (32.0-36.0); Mean Corpuscular Volume 96.3 fL (80.0-100.0); Monocytes # (auto) 0.8 10 ^3/uL (0-1.3); Monocytes % (auto) 4.3 % (0.0-12.0); Neutrophils % (auto) 93.7 % (37.0-80.0); Nucleated Red Blood Cells % 0.1 %; Red Blood Cells 3.86 10^6/uL (4.5-5.90); Red Cell Distribution Width 13.4 % (11.8-14.3); White Blood Cell 19.2 10^3/uL (4.4-10.8)
[2021-05-12] MEDS ORDERED: HEPARIN SODIUM (PORCINE) 5000 UNITS/ML 1ML VIAL ONE (08:47)
[2021-05-12 09:39] LABS: Albumin 1.5 g/dL (3.4-5.0); BUN/Creatinine Ratio 12.5; Bilirubin, Total 0.5 mg/dL (0.2-1.0); Phosphorus 8.1 mg/dL (2.5-4.90); Total Protein 5.2 g/dL (6.4-8.2)
[2021-05-12 09:48] LABS: Calcium 5.9 mg/dL (8.5-10.1); Potassium 5.9 mmol/L (3.5-5.1)
[2021-05-12] MEDS: CHOLECALCIFEROL (VITD3) 2,000 UNIT CAP/TAB PO SCH (10:00)
[2021-05-12] MEDS: MEROPENEM 1GM IVPB 100 ML IV SCH (10:00)
[2021-05-12] MEDS: DexAMETHasone SOD PHOS 10MG/1ML VIAL INJ IV SCH (10:00)
[2021-05-12] MEDS: SODIUM BICARBONATE 650 MG TAB PO SCH ×4 (10:00→22:35)
[2021-05-12] MEDS: PROPOFOL 100 ML IV SCH ×2 (12:48→22:57)
[2021-05-12] MEDS: MIDAZOLAM DRIP 50 mg/50mL 50 ML IV SCH ×2 (12:48→21:14)
[2021-05-12] MEDS ORDERED: ALBUMIN 25% 100 ML IV PRN (14:15)
[2021-05-12] MEDS ORDERED: PHENYLEPHRINE IV 250 ML IV ONE ×2 (15:03→18:05)
[2021-05-12 15:40] LABS: INR 1.26 (0.9-1.15); Partial Thromboplastin Time 42.6 sec (23.6-33.0)
[2021-05-12] MEDS: fentaNYL Drip 2500mCg/250mlNS 250 ML IV SCH (17:45)
[2021-05-12] MEDS: ALBUTEROL SULF 2.5 MG/0.5ML(0.5%) NEB SOLN NEB PRN (18:55)
[2021-05-12] MEDS: BUDESONIDE (INHALATION) 0.5 MG/2 ML NEB NEB SCH (18:55)
[2021-05-12] MEDS ORDERED: AMINO ACID INFUSION IN D10W 1,000 ML IV NR (20:00)
[2021-05-12] MEDS: MEROPENEM 500MG IVPB 50 ML IV SCH (22:36)
[2021-05-12 23:43] LABS: INR 1.11 (0.9-1.15)
[2021-05-12 23:55] LABS: Partial Thromboplastin Time > 139.0 sec (23.6-33.0)
[2021-05-13] VITALS (54 sets, daily range): BP systolic 85–158; BP diastolic 44–88
[2021-05-13] MEDS: MIDAZOLAM DRIP 50 mg/50mL 50 ML IV SCH ×4 (00:07→15:29)
[2021-05-13] MEDS: ACCU-CHEK COMFORT CURVE STRIP VI SCH ×4 (00:18→12:27)
[2021-05-13] MEDS: InsuLIN REG 1unit/0.01ml Soln (100units/ml) SC SCH ×4 (00:19→12:27)
[2021-05-13] MEDS: HEPARIN DRIP/D5W 100UNITS/ML 250 ML IV SCH (03:12)
[2021-05-13] MEDS: PHENYLEPHRINE INJ 80 MG in SODIUM CHL 0.9% 242 ML IV SCH ×2 (03:31→10:24)
[2021-05-13] MEDS: PROPOFOL 100 ML IV SCH ×3 (03:31→12:28)
[2021-05-13] MEDS: fentaNYL Drip 2500mCg/250mlNS 250 ML IV SCH (03:37)
[2021-05-13] MEDS: SODIUM BICARBONATE 650 MG TAB PO SCH ×2 (06:13→12:25)
[2021-05-13] MEDS: SODIUM ZIRCONIUM CYCL 10 GM PAK PO SCH ×2 (06:13→14:00)
[2021-05-13] MEDS ORDERED: VASOPRESSIN 50 UNITS in D5W 5% 247.5 ML IV SCH (10:00)
[2021-05-13] MEDS: MEROPENEM 500MG IVPB 50 ML IV SCH (10:16)
[2021-05-13] MEDS: DexAMETHasone SOD PHOS 10MG/1ML VIAL INJ IV SCH (10:16)
[2021-05-13] MEDS: CHOLECALCIFEROL (VITD3) 2,000 UNIT CAP/TAB PO SCH (10:17)
[2021-05-13] MEDS: NOREPINEPHRINE 8 MG/250ML KIT 250 ML IV SCH (10:25)
[2021-05-13] MEDS ORDERED: NOREPINEPHRINE BITARTRATE 32 MG in SODIUM CHL 0.9% 218 ML IV SCH (10:45)
[2021-05-13] MEDS: ALBUTEROL SULF 2.5 MG/0.5ML(0.5%) NEB SOLN NEB PRN (10:55)
[2021-05-13] MEDS: BUDESONIDE (INHALATION) 0.5 MG/2 ML NEB NEB SCH (10:55)
[2021-05-13 12:05] LABS: Albumin 1.9 g/dL (3.4-5.0); BUN/Creatinine Ratio 10.4; Magnesium 2.6 mg/dL (1.6-2.6)
[2021-05-13 12:07] LABS: Bilirubin, Total 0.8 mg/dL (0.2-1.0); Phosphorus 7.3 mg/dL (2.5-4.90); Total Protein 5.3 g/dL (6.4-8.2)
[2021-05-13 12:08] LABS: Basophils # (auto) 0.1 10 ^3/uL (0-0.2); Basophils % (auto) 0.4 % (0.0-2.0); Eosinophils # (auto) 0.3 10 ^3/uL (0-0.8); Eosinophils % (auto) 1.3 % (0.0-7.0); Hematocrit 31.3 % (41.0-53.0); Hemoglobin 10.4 g/dL (13.5-17.5); Lymphocytes # (auto) 0.3 10 ^3/uL (0.4-5.4); Lymphocytes % (auto) 1.4 % (10.0-50.0); Mean Corpuscular Hemoglobin 31.8 pg (28.0-32.0); Mean Corpuscular Hgb Conc. 33.1 g/dL (32.0-36.0); Mean Corpuscular Volume 96.2 fL (80.0-100.0); Monocytes # (auto) 0.9 10 ^3/uL (0-1.3); Monocytes % (auto) 4.3 % (0.0-12.0); Neutrophils # (auto) 18.4 10 ^3/uL (1.6-8.6); Neutrophils % (auto) 92.6 % (37.0-80.0); Nucleated Red Blood Cells % 0.1 %; Red Blood Cells 3.26 10^6/uL (4.5-5.90); Red Cell Distribution Width 13.9 % (11.8-14.3); White Blood Cell 19.9 10^3/uL (4.4-10.8)
[2021-05-13 12:21] LABS: Potassium 5.9 mmol/L (3.5-5.1)
[2021-05-13 12:22] LABS: Calcium 5.3 mg/dL (8.5-10.1)
[2021-05-13] MEDS ORDERED: CALCIUM GLUC 1,000mg/50ml-NS 50 ML IV ONE (13:45)
[2021-05-13] MEDS ORDERED: MORPHINE SULFATE INJECTION 2 MG/ML SYRG IV PRN (16:15)
[2021-05-13] MEDS: LORazepam 2MG/ML-1ML VIAL IV PRN ×2 (16:48→16:49)
[2021-05-13] MEDS ORDERED: AMINO ACID INFUSION IN D10W 1,000 ML IV NR (20:00)
== END 2021-05-14 04:29 | DRG 871 ==
LOC: ER 11:19 → TELE 18:35 → TELE-EAST 05-01 08:45 → TELE-E-ADS 05-06 10:02 → DOU IN ICU 05-09 17:36
PROVIDERS: ADMIT Internal Medicine; ATTEND Internal Medicine
PROC: XW033E5 Introduction of Remdesivir Anti-infective into Peripheral Vein, Percutaneous Approach, New Technology Group 5 (ICD-10-PCS; 2021-04-30)
PROC: 5A09457 Assistance with Respiratory Ventilation, 24-96 Consecutive Hours, Continuous Positive Airway Pressure (ICD-10-PCS; 2021-05-02)
PROC: 5A0945A Assistance with Respiratory Ventilation, 24-96 Consecutive Hours, High Flow/Velocity Cannula (ICD-10-PCS; 2021-05-06)
PROC: 5A09457 Assistance with Respiratory Ventilation, 24-96 Consecutive Hours, Continuous Positive Airway Pressure (ICD-10-PCS; 2021-05-08)
PROC: 5A1945Z Respiratory Ventilation, 24-96 Consecutive Hours (ICD-10-PCS; principal; 2021-05-09)
PROC: 0BH17EZ Insertion of Endotracheal Airway into Trachea, Via Natural or Artificial Opening (ICD-10-PCS; 2021-05-09)
PROC: 06HY33Z Insertion of Infusion Device into Lower Vein, Percutaneous Approach (ICD-10-PCS; 2021-05-09)
PROC: B54BZZA Ultrasonography of Right Lower Extremity Veins, Guidance (ICD-10-PCS; 2021-05-09)
PROC: 03H633Z Insertion of Infusion Device into Left Axillary Artery, Percutaneous Approach (ICD-10-PCS; 2021-05-10)
PROC: B44GZZZ Ultrasonography of Left Lower Extremity Arteries (ICD-10-PCS; 2021-05-10)
PROC: 5A1D70Z Performance of Urinary Filtration, Intermittent, Less than 6 Hours Per Day (ICD-10-PCS; 2021-05-12)
PROC: 05HY33Z Insertion of Infusion Device into Upper Vein, Percutaneous Approach (ICD-10-PCS; 2021-05-12)
DX: A41.89 Other specified sepsis (principal); U07.1 COVID-19; J12.82 Pneumonia due to coronavirus disease 2019; J96.01 Acute respiratory failure with hypoxia; N17.0 Acute kidney failure with tubular necrosis; R65.21 Severe sepsis with septic shock; J98.11 Atelectasis; I82.401 Acute embolism and thrombosis of unspecified deep veins of right lower extremity; E11.65 Type 2 diabetes mellitus with hyperglycemia; E87.5 Hyperkalemia; Z66 Do not resuscitate; J45.909 Unspecified asthma, uncomplicated; E66.9 Obesity, unspecified; D69.6 Thrombocytopenia, unspecified; D89.839 Cytokine release syndrome, grade unspecified; F41.9 Anxiety disorder, unspecified; Z99.2 Dependence on renal dialysis
CPT/HCPCS: 36415; 36600; 71045; 71275; 80048; 80053; 80061; 80202; 81001; 82040; 82271; 82306; 82728; 82805; 82962; 83036; 83605; 83615; 83735; 84100; 84443; 84478; 84484; 85007; 85025; 85027; 85379; 85610; 85730; 86141; 87040; 87070; 87081; 87086; 87205; 87426; 90935; 93005; 93970; 94002; 94003; 94640; 94660; 96365; 96367; 96375; 99291; G0378; J0330; J0696; J1100; J1815; J2185; J2250; J2543; J2704; J3490; J7060; P9047